=== PATIENT | female | born 1935 | race Caucasian/White ===

== ENCOUNTER 2016-08-26 09:12 | Emergency (ER) | payer OTHER ==
[~2016-08-26] VITALS: Ht 162.6 cm; Wt 71.0 kg
[~2016-08-26 09:12] MED LIST: ARICEPT5 MG PO; ATENOLOL; ATENOLOL100 MG PO; BENAZEPRIL; BENAZEPRIL HCL20 MG PO; CALCIUM 600 +1 EAC4 PO; CRESTOR; CRESTOR10 MG PO; DAILY VALUE1 EACH PO; DIOVAN; DIOVAN320 MG PO; LO-DOSE ASPIRIN81 M2 PO; OMEPRAZ; OMEPRAZOLE20 MG PO; SYNTHROID; SYNTHROID100 MCG PO; vitamin d3
[2016-08-26 10:16] LABS: HEMATOCRIT 37.5 % (36.0-46.0); MCH 29.7 PG (29.0-34.0); MCHC 33.6 G/DL (30.0-36.0); MCV 88.4 FL (83-99); RBC DIS.WIDTH-CV 12.5 % (11.8-14.6); RBC DIS.WIDTH-SD 40.3 % (39-53); RED BLOOD COUNT 4.24 M/uL (3.80-5.20)
[2016-08-26 10:26] LABS: CHLORIDE 107 mEq/L (99-109); POTASSIUM 4.1 mEq/L (3.7-5.4); SODIUM 141 mEq/L (136-147)
[2016-08-26 10:27] LABS: MAGNESIUM 2.3 mg/dL (1.3-2.7)
[2016-08-26 10:29] LABS: GLUCOSE 146 mg/dL (70-99)
[2016-08-26 10:30] LABS: ANION GAP 9 MEQ/L (2-14)
[2016-08-26 10:31] LABS: TOTAL BILIRUBIN 1.2 mg/dL (0.0-1.0)
[2016-08-26 10:32] LABS: ALKALINE PHOSPHATASE 39 IU/L (3-129)
[2016-08-26 10:33] LABS: GFR ESTIMATE (CALCULATED) > 59 mL/min/
[2016-08-26 10:34] LABS: UREA NITROGEN (BUN) 14 mg/dL (9-23)
[2016-08-26 10:37] LABS: TROP-I INTERPRETATION NEGATIVE; TROPONIN-I < 0.01 ng/mL (0.0-0.30)
[2016-08-26] MEDS ORDERED: VITAMIN E400 UNIT PO (11:05)
[2016-08-26 11:21] LABS: MEAN PLAT.VOLUME 11.2 uM^3 (9.5-12.4); PLAT.SUFFICIENCY ADEQUATE; PLATELET COUNT 205 K/uL (156-360)
[2016-08-26 11:47] LABS: ADD MIUA? YES; BILIRUBIN NEGATIVE; BLOOD NEGATIVE; COLOR YELLOW ((YELLOW)); GLUCOSE (STRIP) NEGATIVE; KETONES NEGATIVE; LEUKOCYTES NEGATIVE; NITRITE NEGATIVE; PROTEIN (STRIP) NEGATIVE; SPECIFIC GRAVITY 1.012 (1.000-1.030); UROBILINOGEN 0.2 MG/DL (0.2-1.0)
[2016-08-26 11:56] LABS: BACTERIA RARE /HPF; EPITHELIAL CELLS RARE /HPF; MUCUS TRACE /LPF; RED BLOOD CELLS NONE SEEN /HPF (0-5); UCUL ADDED? NO; WHITE BLOOD CELLS 0-5 /HPF (0-5)
[2016-08-26 14:03] VITALS: BP 181/76
== END 2016-08-26 14:17 | disposition home or self-care (01) ==
LOC: EME 09:12
PROVIDERS: Emergency Medicine
DX: R00.1 Bradycardia, unspecified (principal); R53.1 Weakness; I10 Essential (primary) hypertension; E78.5 Hyperlipidemia, unspecified; E03.9 Hypothyroidism, unspecified; G30.0 Alzheimer's disease with early onset; F02.80 Dementia in other diseases classified elsewhere, unspecified severity, without behavioral disturbance, psychotic disturbance, mood disturbance, and anxiety; Z87.891 Personal history of nicotine dependence
CPT/HCPCS: 70450; 71010; 80053; 81003; 83735; 84484; 85027; 93005; 99281; 99285; J2405

== ENCOUNTER 2017-05-01 06:22 | Emergency (ER) | payer OTHER ==
[~2017-05-01] VITALS: Ht 170.2 cm; Wt 74.8 kg
[~2017-05-01 06:22] MED LIST changes: +VITAMIN E400 UNIT PO
[2017-05-01 07:48] LABS: BASOPHIL (%) 0.8 % (0-1); EOSINOPHIL (%) 1.9 % (0-5); EOSINOPHIL COUNT 0.1 K/uL (0-0.3); HEMATOCRIT 38.6 % (36.0-46.0); HEMOGLOBIN 12.8 G/DL (11.9-15.5); IMMATURE GRANULOCYTE (%) 0.3 % (0.0-0.7); LYMPHOCYTE (%) 23.8 % (15-42); LYMPHOCYTE COUNT 0.9 K/uL (1.0-2.8); MCH 29.7 PG (29.0-34.0); MCHC 33.2 G/DL (30.0-36.0); MCV 89.6 FL (83-99); MONOCYTE (%) 13.5 % (3-12); MONOCYTE COUNT 0.5 K/uL (0-0.8); NEUTROPHIL (%) 59.7 % (45-76); NEUTROPHIL COUNT 2.2 K/uL (1.8-6.4); PLATELET COUNT 169 K/uL (156-360); RBC DIS.WIDTH-CV 12.5 % (11.8-14.6); RBC DIS.WIDTH-SD 41.1 % (39-53); RED BLOOD COUNT 4.31 M/uL (3.80-5.20); WHITE BLOOD COUNT 3.7 K/uL (4.1-10.2)
[2017-05-01 08:03] LABS: CHLORIDE 108 mEq/L (99-109); POTASSIUM 4.5 mEq/L (3.7-5.4); SODIUM 143 mEq/L (136-147)
[2017-05-01 08:06] LABS: GLUCOSE 108 mg/dL (70-99); TOTAL PROTEIN 7.6 g/dL (6.4-8.3)
[2017-05-01 08:07] LABS: TOTAL BILIRUBIN 0.9 mg/dL (0.0-1.0)
[2017-05-01 08:09] LABS: ALKALINE PHOSPHATASE 46 IU/L (3-129); CREATININE 0.9 mg/dL (0.6-1.3); GFR ESTIMATE (CALCULATED) > 59 mL/min/
[2017-05-01 08:10] LABS: UREA NITROGEN (BUN) 19 mg/dL (9-23)
[2017-05-01 08:11] LABS: AST (GOT) 36 IU/L (2-34); TROP-I INTERPRETATION NEGATIVE; TROPONIN-I < 0.01 ng/mL (0.0-0.30)
[2017-05-01 08:11] LABS: APPEARANCE CLEAR ((CLEAR)); BILIRUBIN NEGATIVE; BLOOD NEGATIVE; COLOR STRAW ((YELLOW)); GLUCOSE (STRIP) NEGATIVE; KETONES NEGATIVE; LEUKOCYTES NEGATIVE; NITRITE NEGATIVE; PROTEIN (STRIP) NEGATIVE; SPECIFIC GRAVITY 1.004 (1.000-1.030); UROBILINOGEN 0.2 MG/DL (0.2-1.0)
[2017-05-01 08:12] LABS: ALT (GPT) 24 IU/L (3-49)
[2017-05-01 08:20] LABS: ALBUMIN 4.3 g/dL (3.2-4.8)
[2017-05-01] MEDS ORDERED: LEVAQUIN750 MG PO (09:02)
[2017-05-01 09:30] VITALS: BP 135/69
== END 2017-05-01 09:41 | disposition home or self-care (01) ==
LOC: EME → EDBD 06:22 → EME 06:22
PROVIDERS: Emergency Medicine
DX: J06.9 Acute upper respiratory infection, unspecified (principal); E78.5 Hyperlipidemia, unspecified; I10 Essential (primary) hypertension; K21.9 Gastro-esophageal reflux disease without esophagitis; E03.9 Hypothyroidism, unspecified; G30.0 Alzheimer's disease with early onset; Z79.82 Long term (current) use of aspirin; Z88.8 Allergy status to other drugs, medicaments and biological substances; Z88.0 Allergy status to penicillin; Z87.891 Personal history of nicotine dependence
CPT/HCPCS: 71046; 80053; 81003; 83605; 84484; 85025; 87502; 93005; 99281; 99284